=== PATIENT | female | born 1965 | race Caucasian/White ===

== ENCOUNTER → 2019-06-13 13:05 | Outpatient (CLI) | payer OTHER, SELFPAY ==
--- NOTE | ~2019-06-13 | MM_ITS ---
EXAMINATION: MM screening [facility] HISTORY: Screening mammogram, family history of breast cancer in her mother. TECHNIQUE: Craniocaudal and mediolateral oblique 3-D tomosynthesis images were obtained and synthetic 2-D images were generated. CAD analysis was submitted and interpreted. COMPARISON: 12/19/2017, 06/10/2016, 05/24/2014 BREAST PARENCHYMAL COMPOSITION: There are scattered areas of fibroglandular density. FINDINGS: There is no evidence of suspicious mass, calcification, or architectural distortion to sugg est malignancy in either breast. There has been no suspicious interval change. IMPRESSION: 1. No mammographic evidence of malignancy. 2. Recommend routine screening mammography in one year. BI-RADS Category 1: Negative Reviewed, dictated and finalized at location A.
== END ==
PROVIDERS: Visit Provider Obstetrics & Gynecology
DX: Z12.31 Encounter for screening mammogram for malignant neoplasm of breast (principal)
CPT/HCPCS: 77063; 77067

== ENCOUNTER 2020-03-21 02:04 | Outpatient (CLI) | payer OTHER, SELFPAY ==
[2020-03-21 20:00] LABS: SARS-CoV-2 RNA PCR Negative
== END 2020-03-21 02:05 | disposition home or self-care (01) ==
LOC: ANHCOVIDDT 02:04
PROVIDERS: PCP Family Medicine; Visit Provider Internal Medicine Gastroenterology
DX: Z01.812 Encounter for preprocedural laboratory examination (principal); Z20.828 Contact with and (suspected) exposure to other viral communicable diseases
CPT/HCPCS: 87635; C9803; U0003

== ENCOUNTER 2020-03-24 01:28 | Day surgery (SDC) | payer OTHER, SELFPAY ==
[2020-03-17 15:50] VITALS: BMI 35.9
[2020-03-24 07:53] VITALS: BP 158/92; PULSE 70; RESP 18; TEMP 36.6; O2SAT 99; BMI 38.0
[2020-03-24] MEDS: LACTATED RINGERS 1,000 ML 150 ML IV CONT (08:04)
--- NOTE | 2020-03-24 08:13 | WPDANESEPPF ---
Anes - Initial Pre Proc Eval Procedure: Operation Date: 03/24/20 09:00 Proposed Procedures p Esophagogastroduodenoscopy - Meño England MD Date/Time: 03/24/20 08:13 Surgeon: Meño England MD Pre Op Diagnosis: Gerd, Dysphagia Patient Data Age: 55 Gender: F Height: 1.68 m Weight: 106.8 kg Last Vital Signs Temp 36.6 C 03/24/20 07:53 Pulse 70 03/24/20 07:53 Resp 18 03/24/20 07:53 BP 158/92 H 03/24/20 07:53 Pulse Ox 99 03/24/20 07:53 Allergies Allergy/AdvReac Type Severity Reaction Status Date / Time erythromycin base Allergy Unknown Unknown Verified 03/24/20 07:51 Iodinated Contrast Media Allergy Unknown Unknown Verified 03/24/20 07:51 iodine Allergy Unknown Unknown Verified 03/24/20 07:51 Contrast Media Allergy Mild Rash Uncoded 03/24/20 07:51 Home Medications Medication Instructions Recorded Confirmed Type estradiol-norethindrone acet 0.5 1 tablet PO DAILY 05/23/19 03/17/20 History mg-0.1 mg tablet buspirone 7.5 mg tablet 7.5 mg PO BID #60 tablet 01/14/20 03/17/20 Rx omeprazole 40 mg capsule,delayed 40 mg PO DAILY #90 cap 01/14/20 03/24/20 Rx release Patient hx anesthesia problems: none Family hx anesthesia problems: none PMFSH Past Medical History Medical History (Updated 02/14/20 @ 11:05 by Meño England MD) Anxiety BMI 36.0-36.9,adult Colon cancer screening Tobacco abuse Family History Family History Mother Hypertension Family history of renal failure Father Cerebrovascular accident Grandparent Cerebrovascular accident Other Family history of kidney disease Social History Social History (Updated 02/14/20 @ 10:15 by Cecille King) Smoking packs per day: 1 Smoking cigarettes per day: 20.0 Years smoked: 38 Smoking pack-years: 38.00 Smoking status: Current every day smoker Tobacco type: cigarettes Alcohol intake: current Drinks per week: 1 Substance use: never Substance use type: does not use Living arrangements: with family Spiritual care concerns: No Anes - Eval Final PreProcedure Day of Procedure 03/24/20 08:13 Patient weight: obese Heart: regular rate and rhythm Lungs: clear to auscultation and normal air movement Airway: Mallampati scale class II Neurological: alert and oriented Last oral intake: >/= 8 hours ASA classification: III Emergent: no Anesthetic plan: proceed Anesthesia type and monitoring: general GIVS Informed Consent: The patient's anesthetic plan and its attendant risks and benefits were discussed with the patient/family/POA. Questions were solicited and answers provided to the satisfaction of the patient/family/POA.
--- NOTE | 2020-03-24 09:12 | PM.HPGS ---
History of Present Illness History of Present Illness Consent: Risks, benefits, and alternatives have been discussed and questions answered. Patient agrees to proceed with procedure. Chief complaint: Gerd, Dysphagia Narrative: Zari Silva is a 55 year old female gerd on omeprazole for 2 years, lately had sore throat and dysphagia that improved. Review of Systems Constitutional: Constitutional: Denies headache(s) and Denies weakness Eyes: Eyes: Denies blurry vision ENT: Reports Normal hearing present, Denies headache(s) and Denies neck pain Cardiovascular: Cardiovascular: Denies chest pain and Denies dyspnea Respiratory: Respiratory: Denies dyspnea Gastrointestinal: Gastrointestinal: Reports no additional gastrointestinal complaints Genitourinary: Genitourinary: Denies dysuria Musculoskeletal: Musculoskeletal: Denies neck pain Integumentary/Breasts: Skin/Breast: Denies dry skin Neurologic: Reports Normal hearing present, Denies headache(s) and Denies weakness Psychiatric: Psychiatric: Denies anxiety Endocrine: Endocrine: Denies change in body appearance Hematologic/Lymphatic: Hematologic/Lymphatic: Denies easy bleeding Allergic/Immunologic: Allergic/Immunologic: Denies urticaria [facility] Past Medical History Medical History (Updated 02/14/20 @ 11:05 by Meño England MD) Anxiety BMI 36.0-36.9,adult Colon cancer screening Tobacco abuse Family History Family History Mother Hypertension Family history of renal failure Father Cerebrovascular accident Grandparent Cerebrovascular accident Other Family history of kidney disease Social History Social History (Updated 02/14/20 @ 10:15 by Cecille King) Smoking packs per day: 1 Smoking cigarettes per day: 20.0 Years smoked: 38 Smoking pack-years: 38.00 Smoking status: Current every day smoker Tobacco type: cigarettes Alcohol intake: current Drinks per week: 1 Substance use: never Substance use type: does not use Living arrangements: with family Spiritual care concerns: No Meds Home Medications and Allergies Home Medications Medication Instructions Recorded Confirmed Type estradiol-norethindrone acet 0.5 1 tablet PO DAILY 05/23/19 03/17/20 History mg-0.1 mg tablet buspirone 7.5 mg tablet 7.5 mg PO BID #60 tablet 01/14/20 03/17/20 Rx omeprazole 40 mg capsule,delayed 40 mg PO DAILY #90 cap 10/12/20 12/21/20 Rx release Allergies Allergy/AdvReac Type Severity Reaction Status Date / Time erythromycin base Allergy Unknown Unknown Verified 03/24/20 07:51 Iodinated Contrast Media Allergy Unknown Unknown Verified 03/24/20 07:51 iodine Allergy Unknown Unknown Verified 03/24/20 07:51 Contrast Media Allergy Mild Rash Uncoded 03/24/20 07:51 Vital Signs Vital Signs - 24 hr 03/24/20 07:53 Temperature 97.9 F Pulse Rate 70 Respiratory Rate 18 Blood Pressure 158/92 H Pulse Oximetry 99 Exam Const: General: comfortable and no acute distress HENMT: General nose exam: Normal nares present Eyes: General: appearance normal, both eyes and all related structures Neck: Neck: no JVD Resp: Auscultation: clear to auscultation bilaterally Cardio: Rate: regular rate Rhythm: regular rhythm GI: Inspection: non-distended GI Palp: Yes Soft to palpation Skin: General skin exam: normal color Neuro: General: gait normal Speech: normal speech Extrem: General: normal to inspection Psych: Mental Status: mental status grossly normal Assessment and Plan Assessment and plan (1) Dysphagia: Qualifiers: Dysphagia type: esophageal phase Qualified Code(s): R13.10 - Dysphagia, unspecified Code(s): R13.10 - Dysphagia, unspecified Status: Acute Assessment and Plan: will proceed with egd (2) GERD (gastroesophageal reflux disease): Qualifiers: Esophagitis presence: esophagitis presence not
[2020-03-24 09:27] VITALS: BP 121/73; PULSE 69; RESP 20; O2SAT 99
[2020-03-24 09:37] VITALS: BP 123/70; PULSE 62; RESP 18; O2SAT 98
[2020-03-24 09:47] VITALS: BP 131/73; PULSE 64; RESP 20; O2SAT 99
== END 2020-03-24 10:01 | disposition home or self-care (01) ==
PROVIDERS: PCP Family Medicine; Visit Provider Internal Medicine Gastroenterology
PROC: 0DJ08ZZ Inspection of Upper Intestinal Tract, Via Natural or Artificial Opening Endoscopic (ICD-10-PCS; CPT 43235; principal; 2020-03-24 09:00)
DX: K21.9 Gastro-esophageal reflux disease without esophagitis (principal); R13.10 Dysphagia, unspecified; K31.7 Polyp of stomach and duodenum; K29.50 Unspecified chronic gastritis without bleeding; D13.0 Benign neoplasm of esophagus; F41.9 Anxiety disorder, unspecified; F17.210 Nicotine dependence, cigarettes, uncomplicated; E66.9 Obesity, unspecified; Z68.38 Body mass index [BMI] 38.0-38.9, adult
CPT/HCPCS: 43239; 88305; J2704; J7120

== ENCOUNTER → 2020-08-20 10:44 | Outpatient (CLI) | payer OTHER, SELFPAY ==
--- NOTE | ~2020-08-20 | MM_ITS ---
EXAMINATION: MM screening [facility] BI w [facility] HISTORY: Screening TECHNIQUE: Craniocaudal and mediolateral oblique 3-D tomosynthesis images were obtained and synthetic 2-D images were generated. CAD analysis was submitted and interpreted. COMPARISON: Comparison to multiple prior studies sequentially, with oldest reviewed study dated 07/27. BREAST PARENCHYMAL COMPOSITION: There are scattered areas of fibroglandular density. FINDINGS: There is no evidence of suspicious mass, calcification, or architectural distortion to sugg est malignancy in either breast. There has been no suspicious interval change. IMPRESSION: 1. No mammographic evidence of malignancy. 2. Recommend routine screening mammography in one year. BI-RADS Category 1: Negative Reviewed, dictated and finalized at location A.
== END ==
PROVIDERS: Visit Provider Obstetrics & Gynecology
DX: Z12.31 Encounter for screening mammogram for malignant neoplasm of breast (principal)
CPT/HCPCS: 77063; 77067

== ENCOUNTER → 2021-02-13 03:44 | Outpatient (CLI) | payer OTHER, SELFPAY ==
[2021-02-13 18:10] LABS: SARS-CoV-2 RNA PCR Negative
== END ==
PROVIDERS: PCP Family Medicine; Visit Provider Nurse Practitioner Family
DX: R09.89 Other specified symptoms and signs involving the circulatory and respiratory systems (principal); Z20.822 Contact with and (suspected) exposure to COVID-19
CPT/HCPCS: C9803; U0003; U0005

== ENCOUNTER → 2021-02-13 09:57 | Outpatient (CLI) | payer OTHER, SELFPAY ==
--- NOTE | ~2021-02-13 | XR_ITS ---
EXAMINATION: XR chest 2V 02/13/2021 10:14 INDICATION: Cough PROCEDURE: 2 view chest COMPARISON: 12/12/2015 FINDINGS: The lungs are clear. The cardiomediastinal silhouette is within normal limits. There are no pleural effusions. There is no pneumothorax suspected. IMPRESSION: 1: NO ACUTE CARDIOPULMONARY DISEASE. Reviewed, dictated and finalized at location A. 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
== END ==
PROVIDERS: PCP Family Medicine; Visit Provider Nurse Practitioner Family
DX: R05.9 Cough, unspecified (principal)
CPT/HCPCS: 71046

== ENCOUNTER 2021-12-10 12:24 | Emergency (ER) | payer OTHER, SELFPAY ==
--- NOTE | ~2021-12-10 | XR_ITS ---
EXAMINATION: XR foot RT min 3V DATE: 12/10/2021 13:05 INDICATION: Right foot pain TECHNIQUE: Dorsoplantar, lateral, and oblique views of the right foot were obtained. COMPARISON: None. FINDINGS: There is medial soft tissue swelling of the proximal foot. Bone alignment is normal. There is no fracture. There is [id number] osteoarthritis of multiple interphalangeal joints. Posterio r and plantar calcaneal enthesophytes are noted. IMPRESSION: 1. Medial soft tissue swelling of the foot without acute osseous abnormality. Reviewed, dictated and finalized at location B.
[2021-12-10 13:02] VITALS: BP 198/99; PULSE 73; RESP 16; TEMP 36.2; O2SAT 100
--- NOTE | 2021-12-10 13:18 | ED.GENADULT ---
HPI - General Adult General Chief complaint: Extremity Injury, Lower Stated complaint: Pain in right foot History of Present Illness HPI narrative: Mrs Silva is a pleasant 56 y/o female. PMHx GERD, HTN. Presents to ED today with acute complaints of RT foot pain, worsening in the past 72 hours. Client tells me her pain had started after walking long distances with her a few days ago. She denies falls or direct trauma. Worsening soft tissue swelling and tenderness to medial RT foot. No ankle pain. Worse with prolonged ambulation. No wounds, erythema, warmth. No chest pain, palpitations, dyspnea. No loss of lower extremity sensation or control. She is without additional acute c/o upon PE. Related Data Home Medications Medication Instructions Recorded Confirmed estradiol-norethindrone acet 0.5 1 tablet PO DAILY 05/23/19 10/14/21 mg-0.1 mg tablet Lactobac 51-Bifidobac 1 cap PO DAILY 08/27/21 10/14/21 3-L.lactis-S.thermophilus 4 billion cell capsule (Daily Probiotic (10 Strains)) Allergies Allergy/AdvReac Type Severity Reaction Status Date / Time erythromycin base Allergy Unknown Unknown Verified 12/10/21 12:54 Iodinated Contrast Media Allergy Unknown Unknown Verified 12/10/21 12:54 iodine Allergy Unknown Unknown Verified 12/10/21 12:54 Contrast Media Allergy Mild Rash Uncoded 12/10/21 12:54 Review of Systems Review of Systems: CONSTITUTIONAL: Denies fever, chills, sweats. EYES: Denies visual changes, redness, discharge. ENT: Denies rhinorrhea, congestion, sore throat, otalgia. CARDIOVASCULAR: Denies chest pain, palpitations, edema. RESPIRATORY: Denies dyspnea, wheezing, cough GASTROINTESTINAL: Denies abdominal pain, nausea, vomiting, diarrhea. GENITOURINARY: Denies dysuria, hematuria, abnormal discharge SKIN: Denies rash or itching. MUSCULOSKELETAL: RT foot pain, Denies additional joint pain or myalgia. NEUROLOGIC: Denies numbness, or focal weakness. PSYCHIATRIC: Denies anxiety or depression. [facility] Past Medical History Medical History Anxiety BMI 36.0-36.9,adult BMI over 35 BMI over 35 Colon cancer screening Dry mouth Pharyngitis Screening for lipid disorders Tobacco abuse Family History Family History Mother Hypertension Family history of renal failure Breast cancer Father Cerebrovascular accident Hypertension Depression Thyroid disorder Grandparent Cerebrovascular accident Diabetes mellitus Grandparent No problems noted. Other Family history of kidney disease Social History Social History Smoking packs per day: 1 Smoking cigarettes per day: 20.0 Years smoked: 38 Smoking pack-years: 38.00 Smoking status: Current every day smoker Tobacco type: cigarettes Alcohol intake: current Drinks per week: 1 Substance use: never Substance use type: does not use Spiritual care concerns: No Exam Narrative: GENERAL: This is a well-nourished, well-developed adult, in no apparent distress. HEAD: normocephalic, atraumatic. EYES: PERRL. Sclera clear/white. EARS: External ears normal. NOSE: External nose normal. THROAT: Mucous membranes moist. NECK: Neck supple. CARDIOVASCULAR: Regular rate and rhythm without murmurs, gallops, or rubs. Strong/positive pulses RLE. RESPIRATORY: Clear to auscultation. GASTROINTESTINAL: Abdomen soft, non-tender, nondistended. SKIN: warm, intact. No skin discoloration, warmth, or wounds RLE. NEURO: Alert, active, and age appropriate. No focal neurologic deficits. Good sensation and discrimination RLE. EXTREMITIES: With mild soft tissue swelling and tenderness overlying RT medial foot. No ankle issues. No gross unilateral swelling or compartmental concern. I do not appreciate deformity. No warmth, wounds. ROM intact, No laxity.
== END 2021-12-10 13:40 | disposition home or self-care (01) ==
PROVIDERS: Emergency Provider Nurse Practitioner Adult Health; PCP Family Medicine
DX: S93.601A Unspecified sprain of right foot, initial encounter (principal); X50.9XXA Other and unspecified overexertion or strenuous movements or postures, initial encounter; Y93.01 Activity, walking, marching and hiking; M79.671 Pain in right foot; K21.9 Gastro-esophageal reflux disease without esophagitis; I10 Essential (primary) hypertension; F17.210 Nicotine dependence, cigarettes, uncomplicated
CPT/HCPCS: 73630; 99213; G0463

== ENCOUNTER → 2021-12-22 14:34 | Outpatient (CLI) | payer OTHER, SELFPAY ==
--- NOTE | ~2021-12-22 | MM_ITS ---
EXAMINATION: MM screening [facility] HISTORY: Screening mammogram, family history of breast cancer in her mother. TECHNIQUE: Craniocaudal and mediolateral oblique 3-D tomosynthesis images were obtained and synthetic 2-D images were generated. CAD analysis was submitted and interpreted. COMPARISON: 08/20/2020, 06/13/2019, 12/19/2017 BREAST PARENCHYMAL COMPOSITION: There are scattered areas of fibroglandular density. FINDINGS: There is no suspicious mass, calcification, or architectural distortion to suggest malignan cy in either breast. There has been no suspicious interval change. IMPRESSION: 1. No mammographic evidence of malignancy. 2. Recommend routine screening mammography in one year. BI-RADS Category 1: Negative Reviewed, dictated and finalized at location A.
== END ==
PROVIDERS: PCP Family Medicine; Visit Provider Obstetrics & Gynecology
DX: Z12.31 Encounter for screening mammogram for malignant neoplasm of breast (principal)
CPT/HCPCS: 77063; 77067

== ENCOUNTER → 2023-01-12 10:16 | Outpatient (CLI) | payer OTHER, SELFPAY ==
--- NOTE | ~2023-01-12 | US_ITS ---
Renal-Bladder ultrasound Clinical History: Renal cyst Technique: Real-time sonographic imaging of the kidneys and urinary bladder was performed. Findings: The right kidney measures 10.6 cm in length and the left kidney measures 11.3 cm. There is no hydronephrosis or renal calculus identified. Renal cortical echogenicity is within normal limits. Simple bilateral renal cysts are noted. The urinary bladder is moderately distended at the time of this exam. No intraluminal echoes are iden tified. No abnormal wall thickening is seen. Impression: No significant abnormality. Small simple renal cysts. Reviewed, dictated and finalized at location . Impression: No significant abnormality. Small simple renal cysts.
== END ==
PROVIDERS: PCP Physician Assistant Medical; Visit Provider Physician Assistant Medical
DX: N28.1 Cyst of kidney, acquired (principal); Z87.448 Personal history of other diseases of urinary system
CPT/HCPCS: 76775

== ENCOUNTER → 2023-03-09 10:49 | Outpatient (CLI) | payer OTHER, SELFPAY ==
--- NOTE | ~2023-03-09 | MM_ITS ---
EXAMINATION: MM screening [facility] BI w [facility] HISTORY: Screening mammogram TECHNIQUE: Craniocaudal and mediolateral oblique 3-D tomosynthesis images were obtained and synthetic 2-D images were generated. CAD analysis was submitted and interpreted. COMPARISON: 12/24/2021, 08/20/2020, 06/13/2019 BREAST PARENCHYMAL COMPOSITION: There are scattered areas of fibroglandular density. FINDINGS: No suspicious mass, calcification, or architectural distortion are identified in either laura ast to suggest malignancy. There has been no suspicious interval change. IMPRESSION: 1. No mammographic evidence of malignancy. 2. Recommend routine screening mammography in one year. BI-RADS Category 1: Negative Reviewed, dictated and finalized at location A. 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
== END ==
PROVIDERS: PCP Family Medicine; Visit Provider Obstetrics & Gynecology
DX: Z12.31 Encounter for screening mammogram for malignant neoplasm of breast (principal)
CPT/HCPCS: 77063; 77067

== ENCOUNTER 2023-05-16 08:18 | Outpatient (CLI) | payer OTHER, SELFPAY ==
--- NOTE | ~2023-05-16 | XR_ITS ---
XR knee LT min 4V DATE: 05/16/2023 08:44 INDICATION: Unilateral primary osteoarthritis TECHNIQUE: Hospers and upright AP, PA and lateral views COMPARISON: 09/27/2022 left knee FINDINGS: There is minimal periarticular spurring of the medial lateral compartments and mild periart icular spurring at the patellofemoral compartment. Mild loss of medial compartment joint space height . Enthesopathy of the patella at the quadriceps and patellar tendon insertion sites and minimally at th e patellar tendon insertion at the proximal tibia. No fracture or dislocation, periosteal reaction or bone destruction, radiopaque intra-articular loose body or chondrocalcinosis. IMPRESSION: Mild tricompartment osteoarthritis Reviewed, dictated and finalized at location B. 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
== END 2023-05-16 08:19 | disposition home or self-care (01) ==
PROVIDERS: PCP Family Medicine; Visit Provider Orthopaedic Surgery
DX: M17.12 Unilateral primary osteoarthritis, left knee (principal)
CPT/HCPCS: 73564

== ENCOUNTER 2023-05-19 09:00 | Outpatient (CLI) | payer OTHER, SELFPAY ==
--- NOTE | ~2023-05-19 | MR_ITS ---
MRI of the left knee Clinical history: Medial meniscus tear Technique: Coronal proton density and proton density-weighted images, sagittal proton-density and T2 fat-sat images, and axial proton-density fat-saturated images were acquired. Findings: Anterior and posterior cruciate ligaments are intact. Medial collateral ligament and the la teral collateral ligament complex are intact. Popliteus tendon is intact. There is complex tearing of the posterior horn of the medial meniscus. Questionable flipped fragment posteriorly towards the root. No lateral meniscal tear seen. Articular cartilage in the medial and lateral compartments is relatively well-preserved. There is mod erate chondral thinning of the femoral trochlea. There is high-grade chondromalacia at the patellar a pex extending along the medial facet. Extensor mechanism is intact. No significant joint effusion. Minimal Nelson's cyst. Impression: Complex tearing of the posterior horn of the medial meniscus, as detailed above. Chondromalacia of the patellofemoral compartment, as detailed above. Reviewed, dictated and finalized at location . ER Impression: Complex tearing of the posterior horn of the medial meniscus, as detailed above . Chondromalacia of the patellofemoral compartment, as detailed above.
== END 2023-05-19 09:01 ==
PROVIDERS: PCP Family Medicine; Visit Provider Orthopaedic Surgery
DX: S83.242A Other tear of medial meniscus, current injury, left knee, initial encounter (principal); M94.262 Chondromalacia, left knee
CPT/HCPCS: 73721

== ENCOUNTER 2023-06-17 11:30 | Outpatient (CLI) | payer OTHER, SELFPAY ==
--- NOTE | 2023-06-17 11:51 | ECG_ITS ---
Measurements Intervals [place] Rate: 75 P: 31 SD: 175 QRS: -51 QRSD: 109 T: 67 QT: 400 QTc: 447 Interpretive Statements SINUS RHYTHM LEFT ANTERIOR FASCICULAR BLOCK VOLTAGE CRITERIA FOR LVH BORDERLINE ST-T WAVE ABNORMALITY- HIGH LATERAL LEADS ABNORMAL ECG NO PREVIOUS ECG AVAILABLE FOR COMPARISON Electronically Signed On 06-17-2023 13:16:55 CDT by Len Tom D.O.
== END 2023-06-17 11:31 | disposition home or self-care (01) ==
PROVIDERS: PCP Family Medicine; Visit Provider Orthopaedic Surgery
DX: I10 Essential (primary) hypertension (principal); E78.5 Hyperlipidemia, unspecified; R94.31 Abnormal electrocardiogram [ECG] [EKG]; I44.4 Left anterior fascicular block
CPT/HCPCS: 93005

== ENCOUNTER 2023-06-21 00:57 | Day surgery (SDC) | payer OTHER, SELFPAY ==
[2023-06-13 13:39] VITALS: BMI 37.5
--- NOTE | 2023-06-13 13:58 | SUR.PREOP ---
Report to the Outpatient Waiting Room, entrance under the green pavilion located off [facility], at time 1130 on date 06/21/23. Planned Procedure Time: 1330. Time changes happen often and if your time is changed the preop area will call you the afternoon before. - You and your visitor will be asked to self-screen and do not enter if you have any COVID symptoms. - A mask is optional within the hospital at this time. Patients may have clear liquids (water, carbonated beverages, clear teas, apple juice) until 3 hours prior to surgery with a maximum of 20 ounces. - No food from midnight until time of surgery - Infants may have breast milk until 4 hours before surgery, infant formula 6 hours prior to surgery. - Children will be allowed to drink immediately following surgery. If applicable, please bring a bottle or sippy cup to assist with drinking. Juice, water, soda, and popsicles are readily available. For infants on formula, please bring formula the day of surgery. Pacifiers are allowed. Take the following medications with a SIP of water the morning of surgery: BUSPIRONE IF NEEDED DO NOT STOP ANY OF YOUR OTHER PRESCRIPTION MEDICATIONS PRIOR TO SURGERY ?EXCEPT THE FOLLOWING Medications to discontinue per physician: ASPIRIN 81MG STOP 7 DAYS BEFORE PROCEDURE, VITAMIN B12 STOP 3 DAYS BEFORE PROCEDURE Date to take last dose ASPIRIN 81MG 06/14/23, VITAMIN B12 06/20/23 Please no make-up, nail lao, hairspray, perfume, deodorant, or body powder the day of surgery. No jewelry (including any body piercings) or valuables the day of surgery, leave them at home. Please take a shower or bath the night before, or the morning of, surgery with an antibacterial soap. Wear comfortable, loose fitting clothing. Children are encouraged to wear pajamas. - Jewelry must be removed prior to entering the operating room. Rings and piercings that are not removed may be cut off. - The hospital will not accept responsibility for valuables. - Please leave all valuables, including medications, at home the day of surgery. If you are going home after surgery, a licensed transfer driver must drive you home. - NO public transportation without another adult if you receive anesthesia. - We recommend that an adult stay with you for 24 hours following discharge. - We also recommend that you do not drive, make important decision, drink alcoholic beverages, or take any drugs that were not prescribed by your health care provider for at least 24 hours after your discharge time. Follow any additional instructions given to you from your surgeon. If you or anyone in your household have experienced Covid symptoms in the past week, please notify your surgeon or the nurse liaison at the phone number below for possible testing. Telephone instructions given to JOSE CLARK and asked if any additional questions and then verbalized understanding. Patient advised to call surgeon office or pre surgery nurse liaison [phone] if any additional questions.
[2023-06-21] VITALS (9 sets, daily range): BP systolic 108–146; BP diastolic 56–83; PULSE 67–85; RESP 12–18; TEMP 36.3–36.6; O2SAT 96–100
--- NOTE | 2023-06-21 07:09 | WPDHPUPDATE1 ---
History and Physical Update Update Date/Time: 06/21/23 07:09 History and Physical has been reviewed, including an updated exam of the patient. There are NO changes in the patient's condition. Risks, benefits, and alternatives have been discussed and questions answered. Patient agrees to proceed with procedure. The correct side is LEFT.
--- NOTE | 2023-06-21 12:23 | WPDANESEPPF ---
Anes - Initial Pre Proc Eval Procedure: Operation Date: 06/21/23 13:30 Proposed Procedures p Left Knee Arthroscopic Partial Medial Meniscectomy - Gunnar Price MD Date/Time: 06/21/23 12:23 Surgeon: Gunnar Price MD Pre Op Diagnosis: L knee medial meniscus tear Patient Data Age: 58 Gender: F Height: 1.68 m Weight: 105.69 kg Allergies Allergy/AdvReac Type Severity Reaction Status Date / Time erythromycin base Allergy Unknown Unknown Verified 06/15/23 09:24 Iodinated Contrast Media Allergy Unknown Unknown Verified 06/15/23 09:24 iodine Allergy Unknown Unknown Verified 06/15/23 09:24 prednisone AdvReac Intermediate Nervousness Verified 06/15/23 09:24 Home Medications Medication Instructions Recorded Confirmed Type estradiol-norethindrone acet 0.5 1 tablet PO DAILY 05/23/19 06/15/23 History mg-0.1 mg tablet cyanocobalamin (vitamin B-12) 1,000 mcg PO DAILY 09/27/22 06/15/23 History 1,000 mcg capsule omeprazole 40 mg capsule,delayed 40 mg PO DAILY #90 caps 11/23/22 06/15/23 Rx release lisinopril 10 mg tablet 10 mg PO DAILY #90 tabs 03/18/23 06/15/23 Rx rosuvastatin 20 mg tablet (Crestor) 20 mg PO DAILY #90 tabs 03/18/23 06/15/23 Rx buspirone 7.5 mg tablet See Rx Instructions .Route 05/15/23 06/15/23 Rx .COMPLEX #180 tabs aspirin 81 mg tablet,delayed 81 mg PO DAILY 06/13/23 06/15/23 History release (Adult Aspirin Regimen) aspirin 81 mg tablet,delayed 81 mg PO BID 14 days #28 tabs 06/21/23 Rx release hydrocodone 5 mg-acetaminophen 325 1 - 2 tablet PO Q4-6H PRN pain #20 06/21/23 Rx mg tablet tabs Patient hx anesthesia problems: none Family hx anesthesia problems: none Results Review: All pre-operative results and documents have been reviewed as part of the pre-operative evaluation. [facility] Past Medical History Medical History Anxiety Back problem BMI 36.0-36.9,adult BMI over 35 BMI over 35 Chronic constipation Colon cancer screening Dry mouth Hypertension Pharyngitis Screening for lipid disorders Tobacco abuse Surgical History Surgical History H/O Achilles tendon repair (~2013) History of appendectomy Hx of tonsillectomy Family History Family History Mother Hypertension Family history of renal failure Breast cancer Father Cerebrovascular accident Hypertension Depression Thyroid disorder Grandparent Cerebrovascular accident Diabetes mellitus Grandparent No problems noted. Sibling Hypertension Multiple congenital cysts of kidney COPD (chronic obstructive pulmonary disease) Thyroid cancer Other Family history of kidney disease Social History Social History Smoking packs per day: 1 Smoking cigarettes per day: 20.0 Years smoked: 42 Smoking pack-years: 42.00 Smoking status: Current every day smoker Tobacco type: cigarettes Second hand tobacco smoke exposure: Yes Alcohol intake: current Drinks per week: 1 Substance use: never Substance use type: does not use Do You Feel Safe in your Home?: Yes Lack of Transportation: No Lack of Food: Never True Current Housing: I Have Housing Concerned About Future Housing: No Difficulty Paying Gas/Electric Bills: No Difficulty Paying for Meds: No Currently Unemployed: No Education: High School Diploma/GED Difficulty w/ Childcare or Family Care: No Living arrangements: with family 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
[2023-06-21] MEDS: KETOROLAC 15 MG/ML VIAL (*BKC) IV PUSH (12:45)
[2023-06-21] MEDS: ACETAMINOPHEN 500 MG TABLET 1000 MG PO (12:45)
[2023-06-21] MEDS: LACTATED RINGERS 1,000 ML 30 ML IV CONT ×2 (12:45→14:18)
[2023-06-21] MEDS: ceFAZolin 2 GM/D5W 50 ML 2 GM/50 ML BAG IVPB (13:31)
[2023-06-21] MEDS: BUPIVACAINE/EPINEPHRINE 0.5% 50 ML VIAL 30 ML INFILTRATE (13:41)
--- NOTE | 2023-06-21 14:24 | P.OP_ITS ---
Procedure Note - Detailed Date of Procedure 06/21/23 Pre-op Diagnosis L knee medial meniscus tear Post-op Diagnosis Same Procedure Performed Arthroscopic partial medial meniscectomy, left knee. Surgeon Gunnar Price MD Anesthesia General Findings Complex, extensive medial meniscus tear. Minimal chondromalacia medial. Medial femur chondromalacia grade 0, medial tibia grade 0. Lateral femur chondromalacia grade 0, lateral tibia grade 0. Patellar grade 4, trochlea grade 3. Description of Procedure The patient was identified and the surgical site confirmed and signed in the preoperative holding area. Antibiotics were started per protocol, and the patien t was brought to the operative room and transferred to the OR table. A general anesthetic was administered. Supine position with the operative lower extremity position in the leg peguero after placement of a well padded tourniquet. The leg support was lowered and the contralateral limb was supported with a soft bolster. The knee was prepped and draped in the usual sterile fashion. A time- out was performed. The portal sites were marked and infiltrated with 0.5% Marcaine 20 mL. The limb was exsanguinated and the tourniquet inflated to 300 mL Hg. Standard inferolateral and inferomedial portals were established. Inflow was obtained with the saline pump. The camera was introduced. Diagnostic inspection of the joint was accomplished. The meniscus was debrided with the arthroscopic shaver and punches until stable. The radiofrequency probe was also used for further d?bridement. The arthroscopic instruments were removed. The tourniquet released and wounds closed with subcutaneous 4-0 Monocryl absorbable suture. Steri strips and a sterile dressing were applied. A light elastic wrap was placed. The patient was extubated and brought to the recovery room in stable condition. Estimated Blood Loss 5 Drains No Complications No immediate complications Condition Stable Disposition PACU [facility] Billing Surgery - Charge Forward: Surgery Billing
== END 2023-06-21 16:30 | disposition home or self-care (01) ==
PROVIDERS: PCP Family Medicine; Visit Provider Orthopaedic Surgery
PROC: (CPT 29870; principal; 2023-06-21 13:30)
DX: S83.242A Other tear of medial meniscus, current injury, left knee, initial encounter (principal); I10 Essential (primary) hypertension; F41.9 Anxiety disorder, unspecified; K59.09 Other constipation; F17.210 Nicotine dependence, cigarettes, uncomplicated; E66.9 Obesity, unspecified; Z68.37 Body mass index [BMI] 37.0-37.9, adult; Z79.82 Long term (current) use of aspirin; Z79.891 Long term (current) use of opiate analgesic; Z98.890 Other specified postprocedural states; Z80.3 Family history of malignant neoplasm of breast; Z80.8 Family history of malignant neoplasm of other organs or systems; Z82.49 Family history of ischemic heart disease and other diseases of the circulatory system; X58.XXXA Exposure to other specified factors, initial encounter
CPT/HCPCS: 29881; A9270; J0690; J1100; J1596; J1885; J2250; J2405; J2704; J3010; J7120

== ENCOUNTER 2023-07-10 12:38 | Emergency (ER) | payer BC, SELFPAY ==
[2023-07-10 13:02] VITALS: BP 142/87; PULSE 77; RESP 16; TEMP 36.9; O2SAT 99
--- NOTE | 2023-07-10 17:43 | ED.URI ---
HPI - URI/Sore Throat General Chief Complaint: Upper Respiratory Infection Stated Complaint: SORE THROAT/NECK PAIN/R EYE Time Seen by Provider: 07/10/23 13:15 Source: patient, RN notes reviewed and old records reviewed Mode of arrival: ambulatory Limitations: no limitations History of Present Illness HPI Narrative: 58-year-old female presents to the [facility] with complaints of 1 day of a sore throat, feeling like should swollen lymph nodes in right eye irritation. No treatment prior to arrival. Denies any other symptoms. Related Data Home Medications Medication Instructions Recorded Confirmed estradiol-norethindrone acet 0.5 1 tablet PO DAILY 05/23/19 07/10/23 mg-0.1 mg tablet cyanocobalamin (vitamin B-12) 1,000 mcg PO DAILY 09/27/22 07/10/23 1,000 mcg capsule Allergies Allergy/AdvReac Type Severity Reaction Status Date / Time erythromycin base Allergy Unknown Unknown Verified 07/10/23 12:55 Iodinated Contrast Media Allergy Unknown Unknown Verified 07/10/23 12:55 iodine Allergy Unknown Unknown Verified 07/10/23 12:55 prednisone AdvReac Intermediate Nervousness Verified 07/10/23 12:55 Review of Systems Review of Systems: All systems reviewed & are unremarkable except as noted in HPI and below Constitutional: Constitutional: Reports no additional constitutional complaints Eyes: Eyes: Reports as per HPI ENT: Reports as per HPI and Reports sore throat Cardiovascular: Cardiovascular: Reports no additional cardiovascular complaints, Denies chest pain and Denies dyspnea Respiratory: Respiratory: Reports no additional respiratory complaints, Denies chest congestion, Denies cough and Denies dyspnea Gastrointestinal: Gastrointestinal: Reports no additional gastrointestinal complaints, Denies abdominal pain, Denies nausea and Denies vomiting Musculoskeletal: Musculoskeletal: Reports no additional musculoskeletal complaints Integumentary/Breasts: Skin/Breast: Reports system reviewed and no additional complaints, except as docu Neurologic: Reports system reviewed and no additional complaints, except as documented Psychiatric: Psychiatric: Reports no additional psychiatric complaints Allergic/Immunologic: Allergic/Immunologic: Reports no additional allergic/immunologic complaints PMFSH Past Medical History Medical History Anxiety Back problem BMI 36.0-36.9,adult BMI over 35 BMI over 35 Chronic constipation Colon cancer screening Dry mouth Hypertension Pharyngitis Screening for lipid disorders Tobacco abuse Surgical History Surgical History H/O Achilles tendon repair (~2013) History of appendectomy Hx of tonsillectomy Family History Family History Mother Hypertension Family history of renal failure Breast cancer Father Cerebrovascular accident Hypertension Depression Thyroid disorder Grandparent Cerebrovascular accident Diabetes mellitus Grandparent No problems noted. Sibling Hypertension Multiple congenital cysts of kidney COPD (chronic obstructive pulmonary disease) Thyroid cancer Other Family history of kidney disease Social History Social History Smoking packs per day: 1 Smoking cigarettes per day: 20.0 Years smoked: 42 Smoking pack-years: 42.00 Smoking status: Current every day smoker Tobacco type: cigarettes Second hand tobacco smoke exposure: Yes Alcohol intake: current Drinks per week: 1 Substance use: never Substance use type: does not use Do You Feel Safe in your Home?: Yes Lack of Transportation: No Lack of Food: Never True Current Housing: I Have Housing Concerned About Future Housing: No Difficulty Paying Gas/Electric Bills: No Difficulty Paying for Meds: No Currently Unemploy
== END 2023-07-10 13:29 | disposition home or self-care (01) ==
PROVIDERS: Emergency Provider Nurse Practitioner; PCP Family Medicine
DX: J02.0 Streptococcal pharyngitis (principal); B95.0 Streptococcus, group A, as the cause of diseases classified elsewhere
CPT/HCPCS: 87081; 87880; 99213; G0463

== ENCOUNTER 2023-07-22 13:53 | Outpatient (CLI) | payer BC, SELFPAY ==
--- NOTE | ~2023-07-22 | CT_ITS ---
EXAMINATION:CT lung screening DATE: 07/22/2023 14:17 INDICATION: Tobacco use. Current smoker with 42 pack year history. TECHNIQUE: Computed tomography (CT) of the chest was performed without intravenous contrast. Automate d exposure control and iterative reconstruction technique were employed. The dose-length product (DLP ) was 265.35 mGy-cm. COMPARISON: None. FINDINGS: There is mild atelectasis in the lingula. No pleural effusion. Calcified bilateral lung nod ules and calcified right hilar lymph nodes are consistent with old granulomatous disease. No pleural effusion. The heart size is normal. No pericardial effusion. There are bridging endplate osteophytes at multiple levels in the spine, consistent with diffuse idiopathic skeletal hyperostosis (DISH). The re is severe cervical spondylosis and mild thoracic spondylosis. IMPRESSION: 1. Lung-RADS category 1: Negative. Continue annual screening with noncontrast low-dose chest CT in 12 months. Reviewed, dictated and finalized at location E. IMPRESSION: 1. Lung-RADS category 1: Negative. Continue annual screening with noncontrast l ow-dose chest CT in 12 months.
== END 2023-07-22 13:54 | disposition home or self-care (01) ==
PROVIDERS: PCP Family Medicine; Visit Provider Physician Assistant Medical
DX: Z12.2 Encounter for screening for malignant neoplasm of respiratory organs (principal); F17.210 Nicotine dependence, cigarettes, uncomplicated
CPT/HCPCS: 71271

== ENCOUNTER 2023-09-18 10:06 | Emergency (ER) | payer BC, SELFPAY ==
--- NOTE | 2023-09-18 10:13 | ED.URI ---
HPI - URI/Sore Throat General Chief Complaint: Upper Respiratory Infection Stated Complaint: strep Time Seen by Provider: 09/18/23 10:22 History of Present Illness HPI Narrative: 58 y/o female presented for c/o sore throat x3 days. Also reports swollen glands in throat. States it feels the same as when she had strep in July. Denies sob, wheezing, n/v/d/f/c. Related Data Home Medications Medication Instructions Recorded Confirmed estradiol-norethindrone acet 0.5 1 tablet PO DAILY 05/23/19 09/18/23 mg-0.1 mg tablet cyanocobalamin (vitamin B-12) 1,000 mcg PO DAILY 09/27/22 09/18/23 1,000 mcg capsule Allergies Allergy/AdvReac Type Severity Reaction Status Date / Time erythromycin base Allergy Unknown Unknown Verified 09/18/23 10:13 Iodinated Contrast Media Allergy Unknown Unknown Verified 09/18/23 10:13 iodine Allergy Unknown Unknown Verified 09/18/23 10:13 prednisone AdvReac Intermediate Nervousness Verified 09/18/23 10:13 Review of Systems Review of Systems: CONSTITUTIONAL: Denies body aches, fever, chills, or sweats. EYES: Denies visual changes, redness, or discharge. ENT: reports sore throat Denies rhinorrhea, congestion, or otalgia. CARDIOVASCULAR: Denies chest pain, palpitations, or edema. RESPIRATORY: Denies dyspnea. GASTROINTESTINAL: Denies abdominal pain, nausea, vomiting, or diarrhea. SKIN: Denies rash, itching, or wounds. MUSCULOSKELETAL: Denies back pain, joint pain, or myalgia. NEUROLOGIC: Denies headache PMFSH Past Medical History Medical History Anxiety Back problem BMI 36.0-36.9,adult BMI over 35 BMI over 35 Chronic constipation Colon cancer screening Dry mouth Hypertension Pharyngitis Screening for lipid disorders Tobacco abuse Surgical History Surgical History H/O Achilles tendon repair (~2013) History of appendectomy Hx of tonsillectomy Family History Family History Mother Hypertension Family history of renal failure Breast cancer Thyroid cancer Father Cerebrovascular accident Hypertension Grandparent Cerebrovascular accident Diabetes mellitus Grandparent No problems noted. Sibling Hypertension Multiple congenital cysts of kidney COPD (chronic obstructive pulmonary disease) Thyroid cancer Other Family history of kidney disease Social History Social History Smoking packs per day: 1 Smoking cigarettes per day: 20.0 Years smoked: 42 Smoking pack-years: 42.00 Smoking status: Current every day smoker Tobacco type: cigarettes Second hand tobacco smoke exposure: Yes Alcohol intake: current Drinks per week: 1 Substance use: never Substance use type: does not use Do You Feel Safe in your Home?: Yes Lack of Transportation: No Lack of Food: Never True Current Housing: I Have Housing Concerned About Future Housing: No Difficulty Paying Gas/Electric Bills: No Difficulty Paying for Meds: No Currently Unemployed: No Education: High School Diploma/GED Difficulty w/ Childcare or Family Care: No Living arrangements: with family 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 EYES: conjunctivae clear ENT: Mucous membranes moist. TMs pearly alvarado with normal light reflex bilaterally; no tragal tenderness. Oropharynx mildly erythematous without lesions. Tonsils not enlarged and without exudate. No drooling, no hoarseness, no trismus, uvula midline. No tripod positioning, hot potato voice, or soft palate swelling. NECK: Supple. bilateral anterior cervical lymphadenopathy CHEST: Clear to
[2023-09-18 10:20] VITALS: BP 125/77; PULSE 73; RESP 16; TEMP 36.2; O2SAT 100
== END 2023-09-18 10:37 | disposition home or self-care (01) ==
PROVIDERS: Emergency Provider Nurse Practitioner Family; PCP Family Medicine
DX: J02.0 Streptococcal pharyngitis (principal); F17.210 Nicotine dependence, cigarettes, uncomplicated; I10 Essential (primary) hypertension
CPT/HCPCS: 87880; 99213; G0463

== ENCOUNTER 2023-12-27 14:56 | Outpatient (CLI) | payer BC, SELFPAY ==
--- NOTE | ~2023-12-27 | XR_ITS ---
XR knee RT min 4V Ordering provider: Gunnar Price MD History: . pain in knee and weakness . Comparison: None. FINDINGS: BONES: No acute fracture or dislocation. JOINT SPACES: Normal. Marginal osteophytes in the patella. SOFT TISSUES: Normal. IMPRESSION: No acute osseous abnormality right knee. Reviewed, dictated and finalized at location A.
== END 2023-12-27 14:57 | disposition home or self-care (01) ==
LOC: ANHIMG 14:59
PROVIDERS: PCP Family Medicine; Visit Provider Orthopaedic Surgery
DX: M25.561 Pain in right knee (principal); R53.1 Weakness
CPT/HCPCS: 73564

== ENCOUNTER 2024-01-16 09:41 | Outpatient (CLI) | payer BC, SELFPAY ==
--- NOTE | ~2024-01-16 | MR_ITS ---
MRI right knee without contrast Ordering provider: Gunnra Price MD History: . M25.461 - Effusion, right knee . Comparison: None. FINDINGS: QUADRICEPS, PATELLAR TENDONS AND CRUCIATE LIGAMENTS: Normal in signal and size. No tear. MENISCI: No meniscal tear. COLLATERAL LIGAMENTS: Normal. PATELLA: Normal position without tilt or subluxation. The medial and lateral patellar retinacula and medial patellofemoral ligament are intact. JOINT SPACE/ARTICULAR CARTILAGE: The articular cartilage of the knee is normal including the bottom loader ior femoral condyles. Minimal joint effusion. Osteoarthritic changes are seen in the patellofemoral joint with loss of articular cartilage on the f emoral and patellar sides and with subarticular bright signal in the patella. BONES: Normal marrow signal. SUPERFICIAL AND DEEP SOFT TISSUE: No popliteal cyst. No bursitis. No muscle strain. Otherwise, amandeep l. Varicose veins are seen in the subcutaneous tissues. IMPRESSION: Osteoarthritic changes of the patellofemoral joint with mild joint effusion. Reviewed, dictated and finalized at location A.
== END 2024-01-16 09:42 | disposition home or self-care (01) ==
PROVIDERS: PCP Family Medicine; Visit Provider Orthopaedic Surgery
DX: M17.11 Unilateral primary osteoarthritis, right knee (principal); M25.461 Effusion, right knee
CPT/HCPCS: 73721

== ENCOUNTER 2024-03-05 15:35 | Outpatient (CLI) | payer BC, SELFPAY ==
[2024-03-05 16:14] LABS: Urine Cotinine NEGATIVE
== END 2024-03-05 15:36 | disposition home or self-care (01) ==
LOC: ANHLAB 15:37
PROVIDERS: PCP Family Medicine; Visit Provider Orthopaedic Surgery
DX: Z71.6 Tobacco abuse counseling (principal); Z72.0 Tobacco use
CPT/HCPCS: 80307

== ENCOUNTER 2024-09-24 13:59 | Outpatient (CLI) | payer BC, SELFPAY ==
--- NOTE | ~2024-09-24 | MM_ITS ---
EXAMINATION: MM screening carson BI w aiden HISTORY: Screening mammogram, family history of breast cancer in her mother. TECHNIQUE: Craniocaudal and mediolateral oblique 3-D tomosynthesis images were obtained and synthetic 2-D images were generated. CAD analysis was submitted and interpreted. COMPARISON: 03/09/2023, 12/22/2021, 08/20/2020 BREAST PARENCHYMAL COMPOSITION:Not Dense. There are scattered areas of fibroglandular density. FINDINGS: No suspicious mass, calcification, or architectural distortion are identified in either laura ast to suggest malignancy. There has been no suspicious interval change. IMPRESSION: No mammographic evidence of malignancy. Recommend routine screening mammography in one year. BI-RADS Category 1: Negative Reviewed, dictated and finalized at location .
== END 2024-09-24 14:00 | disposition home or self-care (01) ==
LOC: MICIMG 14:00
PROVIDERS: PCP Family Medicine; Visit Provider Obstetrics & Gynecology
DX: Z12.31 Encounter for screening mammogram for malignant neoplasm of breast (principal)
CPT/HCPCS: 77063; 77067

== ENCOUNTER 2024-10-19 13:20 | Outpatient (CLI) | payer BC, SELFPAY ==
--- OUTSIDE RECORDS SUMMARY | 2024-10-19 13:22 | XMS_ITS | Clinical Summary ---
[facility] Organization [facility] Address [address] [place] [address] Care Team Providers Care Casey Saw Operator Name Role Phone Efrain Cobos MD Primary Care Provider [phone] Allergies Active Allergy Reactions Criticality Noted Date Comments Androgenic Anabolic Steroid Other (See Comments) 07/23/2024 Hypersensitivity Erythromycin Nausea and Vomiting Low 07/04/2019 Iodine Rash Low 07/04/2019 CT dye Medications omeprazole (PriLOSEC) 40 mg Capsule, Delayed Release(E.C.) Take 1 Capsule by mouth daily. 06/06/2024 Active busPIRone (BUSPAR) 7.5 mg Tablet Take 1 Tablet by mouth 2 times daily. 06/21/2024 Active rosuvastatin (CRESTOR) 20 mg tablet Take 1 Tablet by mouth daily. 05/24/2024 Active lisinopriL (PRINIVIL) 10 mg tablet Take 2 Tablets by mouth daily. 05/20/2024 Active Estradiol-Noret hindrone Acet 0.5-0.1 mg Tablet Take 1 Tablet by mouth daily. Active cyanocobalamin (Vitamin B-12) 1,000 mcg Tablet Take 1,000 mcg by mouth daily. Active aspirin (CARLOS CHEWABLE) 81 mg Tablet, Chewable Take 81 mg by mouth daily. Active Active Problems No known active problems Encounters Date Type Department Care Team Description 08/23/2024 External Device Data [facility] ABSTRACTION Provider, Abstract 08/22/2024 External Device Data [facility] ABSTRACTION Provider, Abstract 08/21/2024 External Device Data [facility] ABSTRACTION Provider, Abstract 07/24/2024 External Device Data [facility] ABSTRACTION Provider, Abstract 07/24/2024 External Device Data [facility] ABSTRACTION Provider, Abstract 07/24/2024 External Device Data [facility] ABSTRACTION Provider, Abstract 07/23/2024 11:30 AM CDT Office Visit [facility] Oncology and Hematology [facility] [address] [place] [id number] Breonna Sosa MD Polycythemia vera (CMS/HCC) (Primary Dx) 07/23/2024 Abstract [facility] Oncology and Hematology [facility] [address] [place] [id number] Marlon Kelley MD from Last 3 Months Family History Medical History Relation Name Comments No Known Problems Brother No Known Problems Child 1 No Known Problems Child 2 Heart Disease Father Breast Cancer Mother No Known Problems Sister 1 Thyroid Cancer Sister 2 No Known Problems Sister 3 Relation Name Status Comments Brother Alive Child 1 Alive Child 2 Alive Father Mother Sister 1 Alive Sister 2 Alive Sister 3 Alive Social History Tobacco Use Types Packs/Day Years Used Date Smoking Tobacco: Every Day Cigarettes 1 44.5 Started: 04/04/1980 Smokeless Tobacco: Never Alcohol Use Standard Drinks/Week Comments Yes 0 (1 standard drink = 0.6 oz pur e alcohol) Occasionally Comments Unknown Sex and Gender Information Value Date Recorded Sex Assigned at Not on file 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 Gender Identity Not on file Sexual Orientation Not on file Last Filed Vital Signs Vital Sign Reading Time Taken Comments Blood Pressure 126/79 07/23/2024 11:44 AM CDT Pulse 65 07/23/2024 11:44 AM CDT Temperature 36.1 C (97 F) 07/23/2024 11:44 AM CDT Respiratory Rate 16 07/23/2024 11:4 4 AM CDT Oxygen Saturation 98% 07/23/2024 11: 44 AM CDT Inhaled Oxygen Concentration - - Weight 104.6 kg (230 lb 9.6 oz) 025 11:44 AM CDT Height 167.6 cm (5' 6) 07/23/2024 11:4 4 AM CDT Body Mass Index 37.22 07/23/2024 11:44 AM CDT Plan of Treatment Health Maintenance Due Date Last Done Comments Pre-Diabetes and Diabetes Screening 1963 DTAP/TDAP/TD VACCINES (1 - Tdap) 1982 HPV/Cotest (21-29) 1984 CERVICAL CANCER SCREENING 1993 HPV/Cotest (30-65) 1993 PAP SMEAR 1993 BREAST CANCER SCREENING 2003 COLORECTAL SCREENING 2008 Colorectal Cancer Screening 2008 FIT-DNA Q 3 years 2008 FIT/FOBT Q 1 year 2008 Flex Sig/CT Colonography Q 5 years 2008 Lung Cancer Screening 2013 ZOSTER VACCINE (1 of 2) 2013 Preventative Visit- Commercial 04/04/2024 INFLUENZA VACCINE (#1) 2024 RSV VACCINE (60+ or ) (1 - 1-dose 75+ series) 2038 Insurance [employer] CHO[employer] Care Teams Casey Saw Operator Relationship Specialty Start Date End Date Efrain Cobos MD [address] [place] [address] PCP - General Family Practice 07/23/24
--- OUTSIDE RECORDS SUMMARY | 2024-10-19 13:22 | XMS_ITS | Clinical Summary ---
Author Organization [facility] Address [address], [facility] [address] [place] [address] Phone Care Team Providers Care Metal Sprayer Protective Coating Name Role Phone Efrain Cobos MD Primary Care Provider [phone] Allergies Active Allergy Reactions Criticality Noted Date Comments Erythromycin Vomiting 07/04/2019 Iodine Rash 07/04/2019 CT dye Medications busPIRone HCl (BUSPAR PO) Take by mouth. Active Estradiol-Noreth indrone Acet 0.5-0.1 MG Tablet Take by mouth. Active Omeprazole 20 MG Tablet Delayed Response Take by mouth. Active Family History Medical History Relation Name Comments Arrhythmia Father Cancer Mother Kidney Disease Mother Relation Name Status Comments Father Mother Social History Tobacco Use Types Packs/Day Years Used Date Smoking Tobacco: Every Day Cigarettes Smokeless Tobacco: Never Alcohol Use Standard Drinks/Week Comments Yes 0 (1 standard drink = 0.6 oz pur e alcohol) socially Comments Unknown Sex and Gender Information Value Date Recorded Sex Assigned at Not on file Legal Sex Female 2:18 PM CDT Gender Identity Not on file Sexual Orientation Not on file Last Filed Vital Signs Vital Sign Reading Time Taken Comments Blood Pressure 130/82 07/04/2019 2:57 PM CDT Pulse 76 07/04/2019 2:57 PM CDT Temperature 36.8 C (98.3 F) 07/04/2019 2:57 PM CDT Respiratory Rate 18 07/04/2019 2:57 PM CDT Oxygen Saturation 96% 07/04/2019 2:57 PM CDT Inhaled Oxygen Concentration - - Weight - - Height - - Body Mass Index - - Plan of Treatment Health Maintenance Due Date Last Done Comments Hepatitis C Virus (HCV) Screening 1965 TdaP Immunization 1963 Pap Smear 1984 Cervical Cancer Screening (CCS) 1993 HPV/Cotest 1993 Cologuard 2008 Colonoscopy 2008 Colorectal Cancer Screening 2008 Immunochemical Fecal Occult Blood 2008 Pneumococcal Immunization (5 0+ years) (1 of 1 - PCV) 2013 Zoster Immunization (1 of 2) 2013 SARS-COV-2 Immunization (3 - season) 2023 06/28/2020, 06/05/2020 Influenza Immunization (#1) 2024 Respiratory Syncytial Virus (RSV) Immunization (Adult) (1 - 1-dose 75+ series) 2038 Hepatitis B Immunization Aged Out No longer eligible based on patient's age to complete this topic Human Papillomavirus (HPV) Immunization Aged Out No longer eligible b ased on patient's age to complete this topic Meningococcal Immunization (ACWY) Aged Out No longer eligible b ased on patient's age to complete this topic Rotavirus Immunization Aged Out No lo nger eligible based on patient's age to complete this topic Care Teams Metal Sprayer Protective Coating Relationship Specialty Start Date End Date Efrain Cobos MD [address] [place] [address] PCP - General Family Medicine 07/04/19
--- OUTSIDE RECORDS SUMMARY | 2024-10-19 13:22 | XMS_ITS | Continuity of Care Document ---
Author Organization [facility] [place] Address [address] [place] [address] Phone Care Team Providers Care Telemarketing Supervisor Name Role Phone Larry Rodriguez MD Unavailable Unavailable Allergies, Adverse Reactions, Alerts Substance Reaction Status Criticality No Known Allergies Active No Inform ation Medications Medication Instructions Dosage Effective Dates (start - stop) Status Comments amitriptyline 10 mg tablet take 2 tablet by oral route 3 times every day 20 MG - Active BENZONATATE (unknown strength) take 1 capsule by oral route 3 times every day Not Available - Active fluoxetine 20 mg capsule take 1 capsule by oral route 2 times every day in the morning 20 MG - Active alprazolam 0.5 mg tablet take 1 tablet by oral route every day as needed 0.5 MG - Active DYMISTA (unknown strength) Not Available - Active gabapentin 300 mg capsule take 1-3 po tid to qid as directed - No Longer Active Procedures Procedure Date R3 VIDEOLARYNGOSCOPY N3 VIDEOLARYNGOSCOPY Advance Directives Directive Yes / No Effective Date File Name No Information Encounters Encounter Description Practice Location Reason(s) For Visit Diagnoses Date Provider Providers Copied on Encounter [facility], [address], [place], [place], [id number], [place] tel:[phone] [facility] No Information Jun-0 8-201 7 Michael Juarez. [address] [place] [address], [place] [address], [place], [place], [id number]. tel:[phone] R3 [facility], [address] [place] [address] [address] [facility][note 2], [place], [place], [id number], [place] tel:[phone] [facility] Cough 7 Michael Juarez. [address] [place] [address], [id number]. tel:[phone] Referring Provider: Larry Portillo, [address] [place] [address], [place], [address]. tel:[phone] N3 [facility], [address] [place] [address], [id number], [place] tel:[phone] [facility] 5 Rodriguez Larry. [address] [place] [address], [id number]. tel:[phone] Referring Provider: Larry Portillo, [address] [place] [address], [place], [address]. tel:[phone] Family History Family Member Type Diagnosis Age At Onset No Information Payers Payer name Insurance type Covered green party ID Bonny farr(s) BCBSIL BL [id number] Social History Type Description Quantity Date Captured Comments Sex Female Smoking Status No Information Chief Complaint And Reason For Visit No Information Reason For Referral Reason For Referral No Information History Of Present Illness Encounter Date Complaint History Of Prese nt Illness No Information Functional Status Date Functional Assessmen t No Information Instructions Date Instruction Additional Infor bella Initial Patient Orientation Vide o Sensory Neuropathic Cough I Assessments Type Assessment Date No Information Patient Care Teams Name Effective Dates (start - stop) Status Members No Information
[2024-10-19 13:40] LABS: Hematocrit 45.0 % (37.0-47.0); Hemoglobin 14.7 g/dL (12.0-15.0); Immature Granulocyte Percent A 0.5 % (0-0.5); Lymphocytes Absolute Auto 2.47 K/mm3 (0.9-3.2); Mean Corpuscular HGB Conc 32.7 g/dl (32-36); Mean Corpuscular Hemoglobin 28.9 pg (26-34); Mean Corpuscular Volume 88.4 fl (80-100); Nucleated Red Blood Cells Absolute Auto 0.000 K/mm3 (0.0-0.012); Nucleated Red Blood Cells Perc 0.0 % (0.0-0.2); Platelet Count Result 222 k/mm3 (150-375); Red Blood Count 5.09 M/mm3 (4.2-5.4); White Blood Count 8.6 K/mm3 (4.5-10.0)
[2024-10-19 16:33] LABS: Alanine Aminotransferase 18 U/L (6-35); Albumin Level 3.9 g/dL (3.5-5.1); Alkaline Phosphatase 85 U/L (38-126); Aspartate Amino Transferase 49 U/L (14-36); Bilirubin,Total 0.4 mg/dL (0.2-1.3); Blood Urea Nitrogen 13 mg/dL (7-17); Calcium 9.2 mg/dL (8.4-10.2); Carbon Dioxide 27 mmol/L (22-30); Estimated Glomerular Filt Rate > 60; Glucose 136 mg/dL (65-110); Total Protein 7.0 g/dL (6.3-8.2)
[2024-10-19 16:41] LABS: Anion Gap 5 mmol/L (4-12); Chloride 109 mmol/L (98-107); Potassium 3.9 mmol/L (3.4-5.0); Sodium 141 mmol/L (137-145)
== END 2024-10-19 13:21 | disposition home or self-care (01) ==
LOC: ANHLAB 13:21
PROVIDERS: PCP Family Medicine; Visit Provider Internal Medicine Hematology & Oncology
DX: D45 Polycythemia vera (principal)
CPT/HCPCS: 36415; 80053; 82668; 85025

== ENCOUNTER 2025-01-01 11:16 | Outpatient (CLI) | payer BC, SELFPAY ==
--- OUTSIDE RECORDS SUMMARY | 2025-01-01 11:00 | XMS_ITS | Encounter Summary ---
Author Organization [facility] Address [address] [place] [address] Care Team Providers Care Professor Of Physics Name Role Phone Efrain Cobos MD Primary Care Provider [phone] Reason for Visit * Reason Comments Follow Up Encounter Details Date Type Department Care Team (Late st Contact Info) Description 01/01/2025 11:00 AM CDT Office Visit [facility] Oncology and Hematology - [place] [address] [place] [address] Marlon Kelley MD [address] [facility] [address] [place] [address] Polycythemia vera (CMS/HCC) (Primary Dx) Social History Tobacco Use Types Packs/Day Years Used Date Smoking Tobacco: Every Day Cigarettes 1 44.7 Started: 04/04/1980 Smokeless Tobacco: Never Alcohol Use Standard Drinks/Week Comments Yes 0 (1 standard drink = 0.6 oz pur e alcohol) Occasionally Comments Unknown Sex and Gender Information Value Date Recorded Sex Assigned at Not on file 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 Gender Identity Not on file Sexual Orientation Not on file documented as of this encounter Last Filed Vital Signs Vital Sign Reading Time Taken Comments Blood Pressure 147/88 01/01/2025 10:51 AM CDT Pulse 89 01/01/2025 10:49 AM CDT Temperature 36.6 C (97.8 F) 01/01/2025 10:49 AM CDT Respiratory Rate 15 01/01/2025 10:4 9 AM CDT Oxygen Saturation 97% 01/01/2025 10: 49 AM CDT Inhaled Oxygen Concentration - - Weight 103.2 kg (227 lb 9.6 oz) 025 10:49 AM CDT Height - - Body Mass Index 36.74 07/23/2024 11:44 AM CDT documented in this encounter Progress Notes * Marlon Kelley MD - 01/01/2025 11:32 AM CDT HEMATOLOGY / ONCOLOGY PROGRESS NOTE Patient Identification: Name: Zari Silva Age: 59 y.o. 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 She denies any chest pain and shortness of breath. Denies any bleeding and bruising. Weight and appetite stable. No other new complaints. Review of system Constitutional: Patient did not mention fevers, sweats, fatigue, malaise, weight loss HEENT: Patient did not mention sinus congestion, hearing or vision problems Respiratory: Patient did not mention cough, dyspnea, wheeze Cardiovascular: Patient did not mention chest pain, exertional chest pressure/discomfort, nausea, syncope, shortness of breath GI: Patient did not mention constipation, diarrhea, dsyphagia, reflux symptoms, vomiting, melena : Patient did not mention dysuria, frequency, incontinence, urgency Integumentary system: no lymphadenopathy, sweats, flushing Musculoskeletal: Patient not mention: myalgia, arthralgia Neurological: Patient did not mention blurry or disturbed vision, numbness/weakness, dizziness Skin: No lumps, bumps or rashes. Objective: Vital signs in last 24 hours: As per nursing note Exam: General appearance: alert, cooperative, no distress, appears stated age Head: normocephalic, without obvious abnormality, atraumatic Eyes: conjunctivae/corneas clear, EOM's intact Ears: normal external ear canals AU Nose: Nares normal. Septum midline. Mucosa normal. No drainage or sinus tenderness Throat: Lips, mucosa, and tongue normal. Teeth and gums normal Neck: supple, symmetrical, trachea midline. Lungs: clear to auscultation bilaterally Heart: regular rate and rhythm, S1, S2 normal, no murmur, click, rub or gallop Abdomen: soft, non-tender. Bowel sounds normal. No masses, No organomegaly Extremities: extremities normal, atraumatic, no cyanosis or edema Skin: Skin color, texture, turgor normal. No rashes or lesions Lymph nodes: No lymphadenopathy Neuro: No obvious focal deficit PATH LABS Labs from October 19, 2024 showed AST 49 hemoglobin 14.7 hematocrit 45 erythropoietin 10.1 JAK2 mutation negative Labs from January 01, 2025 showed hemoglobin 14.7 hematocrit 45.6 @IMAGEIMP@ Assessment: Plan: There are no active problems to display for this patient. Secondary erythrocytosis due to smoking obesity and possible sleep apnea. JAK2 mutation negative. Labs showed normal erythropoietin level. Hemoglobin and hematocrit from today is normal. No need for phlebotomy. I recommended regular exercise and weight loss. She will continue baby aspirin and follow-up with me in 6 months. Elevated liver enzyme. I recommended regular exercise and weight loss. She occasionally drinks alcohol. TOBACCO COUNSELING She is not a tobacco/nicotine user. 01/01/2025 Marlon Kelley MD documented in this encounter Plan of Treatment Upcoming Encounters Date Type Department Care Team (Late st Contact Info) Description 07/01/2025 11:45 AM CDT Office Visit [facility] Oncology and Hematology - [place] [address] [address] [facility] [place] [address] Marlon Kelley MD [address] [facility] [address] [facility] [address] [place] [address] Scheduled Orders Name Type Priority Associated Diagnoses Orde r Schedule CBC WITHOUT DIFFERENTIAL Lab Stat Polycythemia vera (CMS/HCC) Expected: 01/01/2025, Expires: 01/01/2026 CBC WITHOUT DIFFERENTIAL Lab Stat Polycythemia vera (CMS/HCC) Expected: 07/01/2025, Expires: 01/01/2026 COMPREHENSIVE METABOLIC PANEL Lab Stat Polycythemia vera (CMS/HCC) Expected: 07/01/2025, Expires: 01/01/2026 documented as of this encounter Visit Diagnoses Diagnosis Polycythemia vera- Primary documented in this encounter Care Teams Professor Of Physics Relationship Specialty Start Date End Date Efrain Cobos MD [address] [place] [address] PCP - General Family Practice 07/23/24 documented as of this encounter
[2025-01-01 11:26] LABS: Hematocrit 45.6 % (37.0-47.0); Hemoglobin 14.7 g/dL (12.0-15.0); Mean Corpuscular HGB Conc 32.2 g/dl (32-36); Mean Corpuscular Hemoglobin 28.7 pg (26-34); Mean Corpuscular Volume 88.9 fl (80-100); Platelet Count Result 220 k/mm3 (150-375); Red Blood Count 5.13 M/mm3 (4.2-5.4); White Blood Count 8.1 K/mm3 (4.5-10.0)
--- OUTSIDE RECORDS SUMMARY | 2025-01-01 11:46 | XMS_ITS | Clinical Summary ---
Author Organization [facility] Address [address], [facility] [address] [place] [address] Phone Care Team Providers Care Pot Room Supervisor Name Role Phone Efrain Cobos MD Primary Care Provider [phone] Allergies Active Allergy Reactions Criticality Noted Date [...] 2013 Zoster Immunization (1 of 2) 2013 Influenza Immunization (#1) 2024 SARS-COV-2 Immunization (3 - 2024- season) 2024 06/28/2020, 06/05/2020 Respiratory Syncytial Virus (RSV) Immunization (Adult) (1 [...] age to complete this topic Care Teams Pot Room Supervisor Relationship Specialty Start Date End Date Efrain Cobos MD [address] [address] PCP - General Family Medicine 07/04/19
--- OUTSIDE RECORDS SUMMARY | 2025-01-01 11:46 | XMS_ITS | Clinical Summary ---
Author Organization [facility] Address [address] [place] [address] Care Team Providers Care Plastic Sheets Finishing Supervisor Name Role Phone Efrain Cobos MD Primary Care Provider [phone] Allergies Active Allergy Reactions Criticality Noted Date [...] Encounters Date Type Department Care Team Description 01/01/2025 11:00 AM CDT Office Visit [facility] Oncology and Hematology - [place] [address] [place] [address] Marlon Kelley MD Polycythemia vera (CMS/HCC) (Primary Dx) 12/18/2024 External Device Data STL ABSTRACTION Provider, Abstract 10/31/2024 Orders Only [facility] Oncology and Hematology - [place] [address] [place] [address] Marlon Kelley MD 10/24/2024 Orders Only [facility] Oncology and Hematology - [place] [address] [place] [id number] Marlon Kelley MD 10/23/2024 Orders Only [facility] Oncology and Hematology - [place] [address] [place] [address] Marlon Kelley MD from Last 3 Months [...] on file 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 Gender Identity Not on file Sexual Orientation [...] 9.6 oz) 025 10:49 AM CDT Height 167.6 cm (5' 6) 07/23/2024 11:4 4 AM CDT Body Mass Index 36.74 07/23/2024 11:44 AM CDT Plan of Treatment Upcoming Encounters Date Type Department Care Team (Late st Contact Info) Description 07/01/2025 11:45 AM CDT Office Visit [facility] Oncology and Hematology - [place] [address] [facility] [address] [place] [address] Marlon Kelley MD [address] [place] [address] Health Maintenance Due Date Last Done Comments [...] ) (1 - 1-dose 75+ series) 2038 Procedures Procedure Name Priority Date/Time Associated Diagnosis Comments JAK2 EXON 12 MUTATION ANALYSIS Routine 10/19/2024 4:25 PM CDT CBC WITH DIFFERENTIAL Routine 10/19/2024 3:17 PM CDT ERYTHROPOIETIN LEVEL Routine 10/19/2024 1:59 PM CDT COMPREHENSIVE METABOLIC PANEL Routine 10/19/2024 7:48 AM CDT from Last 3 Months Results * JAK2 EXON 12 MUTATION ANALYSIS (10/19/2024 4:25 PM CDT) Blood Marlon Kelley MD HEMATOLOGY ORDERABLES COM Final Result * CBC WITH DIFFERENTIAL (10/19/2024 3:17 PM CDT) Blood us Marlon Kelley MD HEMATOLOGY ORDERABLES Final Res ult * ERYTHROPOIETIN LEVEL (10/19/2024 1:59 PM CDT) Blood us Marlon Kelley MD CHEMISTRY ORDERABLES Final Resu lt * COMPREHENSIVE METABOLIC PANEL (10/19/2024 7:48 AM CDT) Blood us Marlon Kelley MD CHEMISTRY ORDERABLES Final Resu lt from Last 3 Months Insurance BLUE ACCESS CHOICE Care Teams Plastic Sheets Finishing Supervisor Relationship Specialty Start Date End Date Efrain Cobos MD [address] [place] [address] PCP - General Family Practice 07/23/24
== END 2025-01-01 11:17 | disposition home or self-care (01) ==
LOC: ANHLAB 11:16
PROVIDERS: PCP Family Medicine; Visit Provider Internal Medicine Hematology & Oncology
DX: D45 Polycythemia vera (principal)
CPT/HCPCS: 36415; 85027